=== PATIENT | male | born 1970 | race Caucasian/White ===

== ENCOUNTER 2020-03-08 22:08 | Emergency (ER) | payer OTHER, SELFPAY ==
[2020-02-05 10:08] VITALS: BMI 29.1
[2020-03-08 22:09] VITALS: BP 163/90; PULSE 90; PULSE 97; RESP 17; RESP 18; TEMP 36.9; O2SAT 96; O2SAT 97; BMI 28.4
--- NOTE | 2020-03-08 22:46 | EKG12_ITS ---
Test Reason : CP Blood Pressure : / mmHG Vent. Rate : 080 BPM Atrial Rate : 080 BPM P-R Int : 148 ms QRS Dur : 090 ms QT Int : 344 ms P-R-T Axes : 047 009 012 degrees QTc Int : 396 ms Normal sinus rhythm Inferior infarct , age undetermined , cannot be excluded Abnormal ECG Confirmed by CARLOS ROBLERO, VIKTOR ([id number]), desk editor RAGHAVENDRA ROBISON ([id number]) on 03/10/2020 9:40:39 AM Referred By: RONNY Confirmed By:VIKTOR GONZALEZ MD
--- NOTE | 2020-03-08 22:46 | ED.DCSUM_ITS ---
History of Present Illness Chief Complaint: Hypertension Detail of Chief Complaint: chest pain Informant: Patient Onset: Hours - 1.5 [employer] Activity at onset: Rest - Soon after drinking a small amount of rum in [place] Timing: Continuous Quality: - - discomfort Location: Substernal - radiates into throat; no pain in back, arms, abd. Current Severity: Mild Maximum Severity: Mild Worsened By: - - occasionally has seemed worse w/ lying flat. Not Worsened By: Exertion, Movement of Arm, Movement of Torso, Eating, Palpation, Breathing, Coughing Relieved By: Nothing Associated Symptoms: Negative for: Nausea, Vomiting, Diaphoresis, Dyspnea, Cough, Fever, Lightheadedness, Palpitations Narrative: Patient has had chest discomfort tonight and he checked his blood pressure at home, it was 167 systolic. He takes benazepril for blood pressure, usually at night, accidentally took an extra dose this morning as well, 10 mg each tablet. He states he had the same discomfort 3 or 4 weeks ago, he was seen in the ER at [place], had a negative work-up and was discharged home to follow-up with cardiology. He states he had the discomfort for about 10 days, consistently before it resolved, and then returned tonight without any obvious cause. He has been exerting himself recently without any symptoms. No recent leg pain or swelling. Takes a baby aspirin every AM. States he has been a type I diabetic for the last 25 years. He sees endocrinology and is actively working to try to keep his A1c under control. He had a cardiac stress test on the treadmill in October 2018 that was unremarkable. He states he had a telemedicine consultation with cardiology with [facility], but he would rather follow-up with a access director locally, so he made an appointment with Dr. Parker but is not scheduled to be seen until March. - Past Medical History (1) Type 1 diabetes mellitus Status: Chronic (2) Benign essential hypertension Status: Chronic Past Medical History - Allergies and Home Meds Allergies/Adverse Reactions: Allergies simvastatin [From Zocor] Allergy (Intermediate, Verified 03/08/20 22:08) Unknown Primary Care Physician: Kimberly Del Cid MD [Primary Care Provider] - 3-5 Days if not improving (and/or cardiology as scheduled) Lives: Spouse/ Significant Other Smoking Status: Unknown if ever smoked Alcohol: Occasional Drugs: None Review of Systems General: Denies: Chills, Fever, Sweats Eyes: Denies: Visual changes - bilaterally, Diplopia ENT: Denies: Bilateral ear pain, Rhinorrhea, Sore throat Cardiovascular: Reports: Chest pain. Denies: Palpitations Respiratory: Denies: Dyspnea, Cough, Dyspnea on exertion Gastrointestinal: Denies: Abdominal pain, Nausea, Vomiting, Diarrhea, Melena, Hematochezia Genitourinary: Denies: Dysuria, Hematuria, Frequency Musculoskeletal: Denies: Neck pain, Back pain, Swelling, Extremity Pain Skin: Denies: Rash, Wounds Neurological: Denies: Headache, Weakness, Numbness Physical Exam Vital Signs/Narrative: Vital Signs Temp Pulse Resp BP Pulse Ox 03/08/20 22:09 98.4 F 97 18 163/90 H 97 Inital Vital Signs reviewed: Yes General: Well nourished, Well developed, No Acute Distress - Well-appearing no distress Head: Normocephalic, Atraumatic Eyes: Perrl, EOMI ENT: Moist mucous membranes, No rhinorrhea Neck: Supple, Nontender, No lymphadenopathy, No JVD Cardiovascular: Regular rate, Regular rhythm, No murmurs. Negative for: Tachycardia Respiratory: No distress, CTA bilaterally, Chest tenderness - left Abdomen: Soft, Nontender, Nondistended, Normal bowel sounds Back: Nontender, Normal Inspection Extremities: Nontender, No edema. Negative for: Calf Tenderness Skin: Normal color, No rash, No Trauma Neurological: Alert, Oriented x3, Cranial nerves II-XII grossly intact, Normal Strength, Normal Sensation, Normal Gait Psychological: Normal affect, Normal Mood Diagnostic/Tx/Re-eval Chest X-Ray - ED: 2 View, Read by ED Physician, Read by Radiologist, Normal, Heart, Lungs, Mediastinum, No Acute Disease Impressions Chest X-Ray 03/08/20 22:47 IMPRESSION: Degenerative changes, as described above. No demonstrated acute cardiopulmonary process. Electronically Signed: Lissy Mehta MD at 23:08 EDT Tel , Service support , 03/08/20 22:47 Chest PA and Lateral [RAD] Stat Laboratory Results 03/08/20 03/08/20 22:15 22:15 WBC 7.0 RBC 5.67 Hgb 15.9 Hct 46.2 MCV 81.5 MCH 28.0 MCHC 34.4 RDW Std Deviation 38.4 RDW Coeff of Inocente 13.0 Plt Count 188 MPV 9.5 Immature Gran % (Auto) 0.300 Neut % (Auto) 55.9 Lymph % (Auto) 30.6 [place] % (Auto) 10.0 Eos % (Auto) 2.6 Baso % (Auto) 0.6 Absolute Neuts (auto) 3.9 Absolute Lymphs (auto) 2.14 Nucleated RBC % 0 Sodium 139 Potassium 3.7 Chloride 105 Carbon Dioxide 28.0 Anion Gap 6 BUN 16 Creatinine 1.00 Estim Creat Clear Calc 99.88 Est GFR (MDRD) Af Amer 102 Est GFR (MDRD) Non-Af 84 BUN/Creatinine Ratio 16.0 Glucose 231 H Calcium 8.4 L Troponin I < 0.015 - Rhythm Strip Rhythm Strip: Sinus Rhythm Rate: 80 Ectopy: None - EKG Initial EKG Interpretation: Sinus Rhythm, No Acute Injury Pattern - Normal axis. Normal EKG. Prior: Unchanged - c/w EKG from 2003 Treatment: GI Cocktail Repeat Eval: 11/28 POLLY Risk: ASA within 7 days Score: 1 - Medical Decision Making EKG, chest x-ray, labs are all unremarkable. Initially we tried a GI cocktail but it did not seem to make a big difference, however his discomfort did go away at one point and then returned and was very mild, and on further discussion he states he can stretch out his pectoral muscles with his arms back behind him, and can manipulate the discomfort. With palpation beneath the left pectoral muscle group, the symptoms are reproducible. I am comfortable letting him go home to follow-up as an outpatient, his blood pressure is down to the 130s. We discussed the possibility that his elevated blood pressures are a result of his symptoms and/or adrenaline, etc. and not the cause of his pain. We discussed trying a 2-week course of a PPI, or ibuprofen. He declined doses of those here. He is comfortable being discharged home and following up with cardiology as planned. ED Disposition - Plan for ED Patient: Disposition: Home or Assisted Living Diagnosis: Chest pain, unspecified Instructions: ED Chest Pain Atypical Unkn Cause, ED CHEST PAIN [place] Referrals: Kimberly Del Cid MD [Primary Care Provider] - 3-5 Days if not improving (and/or cardiology as scheduled)
--- NOTE | 2020-03-08 22:47 | RAD_ITS ---
STUDY: X-RAY CHEST REASON FOR EXAM: Male, 50 years old. CHEST PAIN TECHNIQUE: PA and lateral views of the chest. COMPARISON: None. FINDINGS: The lungs are clear and expanded. There is no demonstrated pleural abnormality. Normal size heart. Normal mediastinum and mirella. Normal visualized pulmonary arteries. Normal visualized aortic arch and descending thoracic aorta. There are diffuse degenerative changes of the visualized thoracic spine. Normal visualized ribs, clavicles, and shoulders. There is no demonstrated abnormality of the visualized soft tissue structures of the upper abdomen. RAD/Chest PA and Lateral IMPRESSION: Degenerative changes, as described above. No demonstrated acute cardiopulmonary process. Electronically Signed: Lissy Mehta MD at 23:08 EDT Tel , Service support ,
[2020-03-08 23:04] LABS: Absolute Lymphocyte Count 2.14 X10^3/uL (0.83-4.51); Absolute Neutrophil Count 3.9 X10^3/uL (2.0-7.7); Basophil# 0.04 X10^3/uL; Basophil% 0.6 % (0-1); Eosinophil# 0.18 X10^3/uL; Eosinophils% 2.6 % (0-5); Hematocrit 46.2 % (40-54); Hemoglobin 15.9 g/dL (13.0-16.5); Lymphocyte # 2.14 X10^3/ul (4.0); Lymphocyte % 30.6 % (19-41); Mean Corp Hgb Conc 34.4 g/dL (32-36); Mean Corpuscular Volume 81.5 fL (80-94); Mean Platelet Vol. 9.5 fl (6.2-12.0); NRBC Flagged by Analyzer 0 % (0-5); Neutrophil # 3.92 X10^3/uL (2.7-7.7); Neutrophil % 55.9 % (47-70); Platelet Count 188 K/mm3 (150-450); RBC Distribution Width SD 38.4 fl (35.1-43.9); Red Blood Count 5.67 M/mm3 (4.6-6.2)
[2020-03-08] MEDS: Mag Hydrox/Al Hydrox/Simeth 30 ML UDC PO (23:08)
[2020-03-08 23:26] LABS: Anion Gap 6 (5-15); BUN 16 mg/dL (7-18); Calcium,Total 8.4 mg/dL (8.5-10.1); Chloride 105 mmol/L (98-107); EST Glomerular Filtration Rate 84 mL/min (>60); Est Glom Filt Rate - Afr Amer 102 mL/min (>60); Estimated Creatinine Clearance 99.88 ml/min; Glucose 231 mg/dL (74-106); Potassium 3.7 mmol/L (3.5-5.1); Sodium Level 139 mmol/L (136-145)
[2020-03-08 23:42] VITALS: BP 130/87; PULSE 78; RESP 18; O2SAT 95
[2020-03-09 00:30] VITALS: BP 136/87; PULSE 75; RESP 17; O2SAT 99
== END 2020-03-09 00:40 | disposition home or self-care (01) ==
PROVIDERS: Emergency Provider Emergency Medicine; PCP Internal Medicine
DX: R07.9 Chest pain, unspecified (principal); I10 Essential (primary) hypertension; E10.9 Type 1 diabetes mellitus without complications; Z79.4 Long term (current) use of insulin; Z79.82 Long term (current) use of aspirin; Z79.899 Other long term (current) drug therapy
CPT/HCPCS: 71046; 80048; 84484; 85025; 93005; 99285; A4216

== ENCOUNTER → 2020-03-19 | Outpatient (CLI) | payer OTHER, SELFPAY ==
[2020-03-08 22:09] VITALS: BMI 28.4
[2020-03-19 10:48] LABS: T4 Free Direct 0.87 ng/dL (0.76-1.46)
[2020-03-20 09:52] LABS: Thyroid Peroxidase AB 14 IU/mL (0-34)
== END | disposition home or self-care (01) ==
LOC: MTLAB 08:31
PROVIDERS: PCP Internal Medicine; Referring Provider Internal Medicine Endocrinology, Diabetes & Metabolism; Visit Provider Internal Medicine Endocrinology, Diabetes & Metabolism
DX: E10.9 Type 1 diabetes mellitus without complications (principal); I10 Essential (primary) hypertension; R00.2 Palpitations
CPT/HCPCS: 36415; 84439; 86376

== ENCOUNTER → 2020-03-31 | Outpatient (CLI) | payer OTHER, SELFPAY ==
[2020-03-24 16:47] VITALS: BMI 28.0
--- NOTE | 2020-03-31 13:25 | CT_ITS ---
STUDY: CARDIAC CALCIUM SCORING - CT CHEST REASON FOR EXAM: Male, 50 years old. CP, DIABETIC. over read only RADIATION DOSAGE (If Supplied By Facility): CTDIvol = ( 13.28 ) mGy, DLP = ( 866.45 ) mGycm TECHNIQUE: Axial non-enhanced images were acquired through the heart for the sole purpose of measuring coronary artery calcium. Individualized dose optimization techniques were used for this CT. COMPARISON: None. FINDINGS: Visualized surrounding anatomy: Normal. Left Main Coronary Artery: 0 Left Anterior Descending Artery: 0 Left Circumflex Artery: 0 Right Coronary Artery: 0 Other: 6 x 4 mm left lower lobe subpleural nodule on image 8. Small right middle and lower lobe calcified granulomas. No focal pulmonary consolidation Total Calcium Score: 0 CT/Limited Chest CT w/CCTA IMPRESSION: A Calcium Score of 0 places the patient in the approximate 0 percentile, based on the [employer] data calculator. 5 mm average diameter left lower lobe subpleural nodule. If high risk for developing pulmonary malignancy continued annual chest CT is recommended. If low risk, no follow-up is recommended. Please go to: [email or web address] , for a description of the calculator. Electronically Signed: Srinivas Dukes, at 16:09 EDT Tel , Service support ,
--- NOTE | 2020-03-31 13:25 | CT_ITS ---
STUDY: CTA CHEST REASON FOR EXAM: Male, 50 years old. Chest pain RADIATION DOSAGE (If Supplied By Facility): CTDIvol = ( 13.28 ) mGy, DLP = ( 866.45 ) mGycm TECHNIQUE: The examination was performed with the intravenous administration of 100ML ISOVUE 300. Post-processing of the angiographic images was performed, with multiplanar reformation and 3D reconstruction. Individualized dose optimization techniques were used for this CT. COMPARISON: None. FINDINGS: Normal enhancement of the main pulmonary artery and right and left pulmonary arteries. Normal enhancement of the bilateral peripheral pulmonary arteries. There is no demonstrated pulmonary embolism. Normal pleura. 6 x 4 mm left lower lobe subpleural nodule on image 49. Small right middle and lower lobe calcified granulomas. No focal pulmonary consolidation. Tracheobronchial tree is patent. Normal thoracic aorta and visualized great vessels. There is no demonstrated aortic dissection. No aortic aneurysm. Normal heart and pericardium. No mediastinal, axillary or bulky hilar adenopathy. Normal visualized trachea and bronchi. Normal chest wall structures. Mild degenerative changes of the spine. Normal visualized upper abdomen. CT/CTA Chest W/WO Contrast IMPRESSION: No pulmonary embolism or arterial dissection. No aortic aneurysm. 5 mm average diameter left lower lobe subpleural nodule. If high risk for developing pulmonary malignancy continued annual chest CT is recommended. If low risk, no follow-up is recommended. Electronically Signed: Srinivas Dukes, at 17:05 EDT Tel , Service support ,
[2020-03-31 13:30] VITALS: BP 134/83; PULSE 77; RESP 16; O2SAT 98; BMI 27.7
--- NOTE | 2020-04-01 08:46 | CA.SCORE ---
Calcium Scoring Date of Study:: 04/01/20 Coronary Calcium Scoring: High-resolution Computed Tomographic imaging of the chest was performed on [03/31/2020 ], with particular attention paid to the coronary arteries. Images from the examination were analyzed for the presence and extent of coronary artery calcification , using coronary calcium quantification software. The patient tolerated the procedure well and there were no complications. The results of the coronary calcification analysis are provided below. - Findings Left Main (LM): 0 Left Anterior Descending (LAD): 0 Left Circumflex (LCX): 0 Total Agatston Score: 0 Calcium Scoring Interpretation: 0 No identifiable atherosclerotic plaque. Very low cardiovascular disease risk. <5% chance of presence coronary artery disease A Negative Examination 1-10 Minimal Plaque burden. Significant coronary artery disease very unlikely. 11-100 Mild plaque burden. Likely mild or minimal coronary atherosclerosis. 101-400 Moderate plaque burden Moderate non-obstructive coronary artery disease highly likely. Over 400 Extensive plaque burden. High likelihood of at least one significant coronary stenosis (>50% diameter) Calcium Score: 0 Negative Examination - A full evaluation of cardiac risk should include an assessment of all cardiac risk.
== END | disposition home or self-care (01) ==
PROVIDERS: PCP Internal Medicine; Referring Provider Internal Medicine Cardiovascular Disease; Visit Provider Internal Medicine Cardiovascular Disease
DX: I10 Essential (primary) hypertension (principal); R07.9 Chest pain, unspecified
CPT/HCPCS: 71275; 75571; 76380; Q9967

== ENCOUNTER → 2020-04-23 | Outpatient (CLI) | payer OTHER, SELFPAY ==
[2020-03-31 13:30] VITALS: BMI 27.7
--- NOTE | 2020-04-23 16:34 | STRESSREP ---
Stress Test Report Exercise stress test. 50-year-old man with a history of chest pain. Stress protocol: Resting EKG demonstrates sinus rhythm with a rate of 67 bpm normal intervals are noted resting blood pressures 130/78 mmHg. The patient exercised according to regular Emil protocol for a total duration of 10 minutes. The maximum heart rate attained was 171 bpm which was 100% of maximum predicted heart rate the maximum workload was 11.7 metabolic equivalents. At rest there were no ST or T wave changes noted suggest ischemia at peak exercise upsloping ST changes only were noted with no meet the criteria for ischemia. No clinical angina was noted the test was terminated due to moderate shortness of breath as well as the target heart rate being achieved. The resting blood pressure was 130/78 mmHg with a peak blood pressure 174/76 mmHg. Conclusion: Exercise stress test with no EKG criteria for ischemia at a high workload. Excellent functional capacity. No arrhythmias noted. Good blood pressure response to exercise.
== END | disposition home or self-care (01) ==
LOC: CVS 09:50
PROVIDERS: PCP Internal Medicine; Referring Provider Internal Medicine Cardiovascular Disease; Visit Provider Internal Medicine Cardiovascular Disease
DX: R07.9 Chest pain, unspecified (principal); R42 Dizziness and giddiness; E10.9 Type 1 diabetes mellitus without complications; E78.5 Hyperlipidemia, unspecified; I10 Essential (primary) hypertension
CPT/HCPCS: 93017

== ENCOUNTER → 2020-07-30 | Outpatient (CLI) | payer OTHER, SELFPAY ==
[2020-07-27 13:47] VITALS: BMI 27.7
== END | disposition home or self-care (01) ==
PROVIDERS: PCP Internal Medicine; Referring Provider Internal Medicine; Visit Provider Internal Medicine
DX: F41.9 Anxiety disorder, unspecified (principal); R53.83 Other fatigue
CPT/HCPCS: 36415; 82533

== ENCOUNTER 2020-09-10 08:45 | Day surgery (SDC) | payer OTHER, SELFPAY ==
[2020-08-23 08:56] VITALS: BMI 27.7
[2020-08-30 17:44] VITALS: BMI 27.7
--- NOTE | 2020-09-10 08:00 | HP_ITS ---
Intake Vital Signs 08/23/20 BMI 27.7 08/23/20 Height 6 ft 1 in 08/23/20 Weight: 208 lb 08/23/20 BMI 27.4 08/23/20 BP 128/77 H 08/23/20 Blood Pressure Location Rt brachial 08/23/20 Position Sitting 08/23/20 Respiration 16 Intake Visit Reasons: C-Scope Chief Complaint: c-scope Fisher Scallop Required: No Is patient in pain?: No Allergies simvastatin [From Zocor] Allergy (Intermediate, Verified 08/23/20 08:56) Unknown Medications insulin lispro 100 unit/mL subcutaneous solution See Rx Instructions SC TID 02/05/20 [History Confirmed 07/27/20] insulin glargine 100 unit/mL (3 mL) subcutaneous pen 25 unit SUBCUT DAILY ml 03/22/20 [History Confirmed 07/27/20] benazepril 10 mg tablet 10 mg PO DAILY #30 tab 07/05/20 [Rx Confirmed 07/27/20] meclizine 25 mg tablet 25 mg PO DAILY PRN #14 tab 07/12/20 [Rx Confirmed 07/12/20] omega-3 fatty acids 1,000 mg capsule 1,000 mg PO DAILY 08/23/20 [History Confirmed 08/23/20] PFSH Medical History Benign essential hypertension (Chronic) Hyperlipidemia (Chronic) Type 1 diabetes mellitus (Chronic) Leg fracture, right (Resolved) Surgical History History of foot surgery (Resolved) History of vasectomy (Resolved) Family History Father Prostate cancer Grandfather Brain aneurysm Cancer Uncle Diabetes Grandmother Thoracic aortic aneurysm (TAA) Social History (Updated 08/23/20 @ 09:[address] Kerwin Ruff MD) Smoking Status: Unknown if ever smoked alcohol intake: current alcohol intake frequency: a few times a month substance use type: does not use what type of physical activity do you participate in: other details: active lifestyle HPI HPI HPI: JENNY SAENZ, is a 50 M who presents to the office today for HPI HPI Surgical H&P: Yes HPI: JENNY SAENZ, is a 50 M who presents to the office today for Screening colonoscopy. The patient has never had a colonoscopy. He denies any blood in stool or abdominal pain. He is has no family history of colon cancer. ROS General General: No weight change or fatigue Endo Endocrine: Yes diabetes mellitus Cardio Cardiovascular: Yes high blood pressure; no murmur, pacemaker, heart disease, atrial fibrillation, heart attack, heart stent, palpitations, shortness of breat with exertion or chest pain Psych Psychiatric: Yes anxiety; no depression Resp Respiratory: No shortness of breath, No sleep apnea, No cough, No COPD, No asthma, No emphysema, No wheezing Gastro Gastrointestinal: No abdominal pain, No nausea or vomiting, No diarrhea, No constipation, No blood in stool, Yes acid reflux, No hemorrhoids, No ulcers, No gallbladder problem, No black,tarry stools Jcarlos Hematologic: No blood thinners Exam Const General: cooperative Orientation: alert, oriented x3 Resp Effort & Inspection: normal respiratory effort Auscultation: clear to auscultation bilaterally Cardio Rate: regular rate Rhythm: regular rhythm Heart Sounds: no murmurs GI Inspection: non-distended Palpation: soft, nontender Assessment & Plan Problems 1. Screen for colon cancer Z12.11 Plan Plan for screening colonoscopy. The patient denies any abdominal pain or blood in his stool or family history of colon cancer. I explained endoscopy in detail to the patient. I explained the risks including but not limited to stroke or heart attack with anesthesia, perforation of the GI tract, bleeding, infection. I explained that any of these could necessitate further emergency surgery. The patient understands and all questions were answered sufficiently. The patient wishes to proceed with procedure. We discussed the current risks associated with COVID-19. While it is understood that there is a community spread of COVID-19, the risk of lionel COVID-19 while at [facility] ([facility]) is very low; however, the risk cannot be completely mitigated because of the community spread of the disease. We discussed in detail the risk of exposure to and/or potential harm posed by the COVID-19 virus with having a surgery/procedure at this time versus the risk of delaying the surgery/procedure. It is not possible to know either the risk of delaying the surgery or procedure or chance of getting an infection with perfect accuracy, but a joint decision was made to proceed at this time with the scheduled surgery/procedure as indicated on the consent form. Patient was notified that we will need to comply with any screening or testing [facility] wishes to perform or that surgery may be delayed for any positive results. Kerwin Ruff MD Pager: [facility] [address] [place] [address], [address] [place] [phone] Office: Orders Orders: Colonoscopy Today Z12.11 Coding Level of Care Code Off vis,new,level 2 Diagnoses Screen for colon cancer Z12.11 I have re-examined the patient. There are no clinical changes since date of exam.
[2020-09-10 09:55] VITALS: BP 122/89; PULSE 59; RESP 16; TEMP 36.6; O2SAT 100; BMI 27.4
[2020-09-10] MEDS: Lactated Ringers 1,000 ML 100 ML IV (10:03)
[2020-09-10 10:16] LABS: Bedside Glucose 245 mg/dL (70-110)
[2020-09-10 10:48] VITALS: BP 122/89; BP 154/87; PULSE 61; RESP 22; TEMP 36.2; O2SAT 100
--- NOTE | 2020-09-10 10:48 | OP.CCLET_ITS ---
09/10/2020 Mckenna Chu [facility] [address] [place] [address] Re : Colonoscopy procedure for Say Brewer Dear Dr. Chu This procedure was performed on Thursday, September 10, 2020. My impressions and recommendations are as follows: Impressions : - The entire examined colon is normal on direct and retroflexion views. - No specimens collected. Recommendations : - Discharge patient to home. - Resume previous diet. - Continue present medications. - Repeat colonoscopy in 10 years for screening purposes. My findings are described in the full procedure note, which is enclosed. If I can be of further assistance, please feel free to contact me at Doctor phone number(s): , Work: . Sincerely, Kerwin Ruff MD 09/10/2020 10:47:30 AM This report has been signed electronically.
--- NOTE | 2020-09-10 10:48 | OP.COLON_ITS ---
Patient Name: Say Brewer Procedure Date: 09/10/2020 10:09 AM Date of : 1970 Age: 50 Procedure: Colonoscopy Indications: Screening for colorectal malignant neoplasm Providers: Kerwin Ruff MD Referring MD: Mckenna Chu Medicines: Monitored Anesthesia Care Patient Profile: This is a 50 year old male. Refer to note in patient chart for documentation of history and physical. Last Colonoscopy: none. The patient's first colonoscopy is today. Complications: No immediate complications. Procedure: Pre-Anesthesia Assessment: - Prior to the procedure, a History and Physical was performed, and patient medications and allergies were reviewed. The patient's tolerance of previous anesthesia was also reviewed. The risks and benefits of the procedure and the sedation options and risks were discussed with the patient. All questions were answered, and informed consent was obtained. Prior Anticoagulants: The patient has taken no previous anticoagulant or antiplatelet agents. After reviewing the risks and benefits, the patient was deemed in satisfactory condition to undergo the procedure. After I obtained informed consent, the scope was passed under direct vision. Throughout the procedure, the patient's blood pressure, pulse, and oxygen saturations were monitored continuously. The pediatric colonoscope was introduced through the anus and advanced to the cecum, identified by appendiceal orifice and ileocecal valve. The colonoscopy was performed without difficulty. The patient tolerated the procedure well. The quality of the bowel preparation was good. Scope In: 10:20:52 AM Scope Withdrawal Time 0 hours 6 minutes 2 seconds Scope Out: 10:45:38 AM Total Procedure Duration Time 0 hours 24 minutes 46 seconds Findings: The entire examined colon appeared normal on direct and retroflexion views. Impression: - The entire examined colon is normal on direct and retroflexion views. - No specimens collected. Recommendation: - Discharge patient to home. - Resume previous diet. - Continue present medications. - Repeat colonoscopy in 10 years for screening purposes. Procedure Code(s): --- Professional --- 09934, Colonoscopy, flexible; diagnostic, including collection of specimen(s) by brushing or washing, when performed (separate procedure) Diagnosis Code(s): --- Professional --- Z12.11, Encounter for screening for malignant neoplasm of colon CPT copyright 2017 [employer]. All rights reserved. The codes documented in this report are preliminary and upon claims consultant review may be revised to meet current compliance requirements. Kerwin Ruff MD 09/10/2020 10:47:30 AM This report has been signed electronically. Number of Addenda: 0 Note Initiated On: 09/10/2020 10:09 AM
[2020-09-10 11:00] VITALS: BP 122/89; BP 134/88; PULSE 58; RESP 18; O2SAT 95
[2020-09-10 11:05] VITALS: BP 122/89; BP 146/80; PULSE 53; RESP 16; TEMP 36.8; O2SAT 97
[2020-09-10 11:06] VITALS: BP 122/89; BP 156/77; PULSE 60; RESP 16; TEMP 36.8; O2SAT 100
--- NOTE | 2020-09-10 11:52 | CT_ITS ---
STUDY: CT ABDOMEN AND PELVIS WITHOUT CONTRAST REASON FOR EXAM: Male, 50 years old. PAIN AFTER COLONOSCOPY RADIATION DOSAGE (If Supplied By Facility): CTDIvol = ( 12.57 ) mGy, DLP = ( 706.78 ) mGycm TECHNIQUE: Transaxial images were obtained from the dome of the diaphragm to the symphysis pubis without oral contrast, and without intravenous contrast. Sagittal and coronal images were reconstructed. Individualized dose optimization techniques were used for this CT. COMPARISON: None. FINDINGS: Minimal degree of increased markings at the lung bases suggestive of bibasilar atelectasis. The visualized portions of the heart are within normal limits. Normal liver. Normal gallbladder and extrahepatic biliary system. Normal spleen. Normal pancreas. Normal bilateral adrenal glands. Normal right kidney. Normal left kidney. There is a small hiatal hernia. Normal small intestine. Gaseous distention of the colon in keeping with the recent colonoscopy. The appendix is visualized and appears normal. Normal abdominal aorta. Normal inferior vena cava. There is borderline retroperitoneal lymphadenopathy with enlarged nodes no greater than 10mm in the short axis diameter. Normal urinary bladder. There is a small umbilical hernia containing fat. Normal osseous structures. CT/Abdomen/Pelvis without Cont IMPRESSION: Gaseous distention of the colon in keeping with the recent colonoscopy. Small umbilical hernia containing fat. Mild degree of bibasilar linear atelectasis. Electronically Signed: Malcolm Hernandez, at 12:25 EDT , Service support ,
[2020-09-10 13:44] VITALS: BP 122/89; BP 153/79; PULSE 83; RESP 18; TEMP 36.8; O2SAT 98
== END 2020-09-10 13:46 | disposition home or self-care (01) ==
LOC: EN 08:45 → AC 08:45
PROVIDERS: Anesthesiology; PCP Internal Medicine; Referring Provider Internal Medicine; Visit Provider Surgery
PROC: 0DJD8ZZ Inspection of Lower Intestinal Tract, Via Natural or Artificial Opening Endoscopic (ICD-10-PCS; CPT 45378; principal; 2020-09-10 10:25)
DX: Z12.11 Encounter for screening for malignant neoplasm of colon (principal); G89.18 Other acute postprocedural pain; E10.9 Type 1 diabetes mellitus without complications; Z20.828 Contact with and (suspected) exposure to other viral communicable diseases; Z79.4 Long term (current) use of insulin
CPT/HCPCS: 45378; 74176; 82962; 87635; C9803; J7030; J7120; J2405; U0003

== ENCOUNTER → 2020-11-02 10:48 | Outpatient (CLI) | payer OTHER, SELFPAY ==
[2020-09-27 08:30] VITALS: BMI 27.9
== END ==
PROVIDERS: PCP Internal Medicine; Referring Provider Internal Medicine; Visit Provider Internal Medicine
DX: G47.30 Sleep apnea, unspecified (principal)
CPT/HCPCS: 95806

== ENCOUNTER → 2020-11-18 14:59 | Outpatient (CLI) | payer OTHER, SELFPAY ==
[2020-09-27 08:30] VITALS: BMI 27.9
== END ==
PROVIDERS: PCP Internal Medicine; Visit Provider Internal Medicine
DX: Z45.89 Encounter for adjustment and management of other implanted devices (principal)

== ENCOUNTER → 2021-03-14 09:42 | Outpatient (CLI) | payer OTHER, SELFPAY ==
[2021-03-14 08:55] VITALS: BMI 29.0
[2021-03-14 12:50] LABS: AST(SGOT) 16 U/L (15-37); Alanine Aminotransfer ALT/SGPT 34 U/L (16-61); Albumin, Serum 3.6 g/dL (3.2-5.0); Alkaline Phosphatase 79 U/L (45-117); Anion Gap 4 (5-15); BUN 19 mg/dL (7-18); BUN/Creat Ratio 20.3 RATIO (10-20); Calcium,Total 8.6 mg/dL (8.5-10.1); Chloride 103 mmol/L (98-107); Cholesterol 186 mg/dL (200); Creatinine, Serum 0.94 mg/dL (0.70-1.30); EST Glomerular Filtration Rate 90 mL/min (>60); Est Glom Filt Rate - Afr Amer 109 mL/min (>60); Globulin 3.5 g/dL (2.2-4.2); Glucose 169 mg/dL (74-106); High Density Lipoprotein 35 mg/dL; Potassium 4.1 mmol/L (3.5-5.1); Protein, Total 7.1 g/dL (6.4-8.2); Sodium Level 137 mmol/L (136-145); Thyroid Stim Hormone (TSH) 3.61 uIU/mL (0.358-3.74); Triglycerides 144 mg/dL; Very Low Density Lipoprotein 29 mg/dL (5-40)
[2021-03-14 13:20] LABS: Microalbumin,Random Urine 8.3 mg/L (NO RANGE EST.); Microalbumin:Creatinine Ratio 5.4 mg/g CRE (<30 mg/g CRE)
== END ==
PROVIDERS: PCP Internal Medicine; Visit Provider Internal Medicine Endocrinology, Diabetes & Metabolism
DX: E10.9 Type 1 diabetes mellitus without complications (principal); E78.5 Hyperlipidemia, unspecified; I10 Essential (primary) hypertension
CPT/HCPCS: 36415; 80053; 80061; 82043; 82570; 84443

== ENCOUNTER → 2021-07-21 17:39 | Outpatient (CLI) | payer OTHER, SELFPAY ==
--- NOTE | 2021-07-21 17:42 | CT_ITS ---
INDICATION: Left lower lung nodule EXAMINATION: CT CHEST WITHOUT CONTRAST - CT Chest W/O Contrast Injection TECHNIQUE: Helically acquired images were obtained of the chest. A radiation dose optimization technique was used for this scan. IV Contrast dosage and agent: None. COMPARISON: 09/10/2020 and 03/31/2020. FINDINGS: LUNGS, PLEURA AND LARGE AIRWAYS: Mild thickening of the bronchial hernandez is seen, no evidence of focal consolidation or infiltrate. No evidence of pneumothorax or pleural effusion. 0.6 cm pleural-based density is visualized in the upper segment of the superior segment of the left lower lobe seen on axial series 2 image 50 0.4 cm calcified granuloma visualized in the anterolateral right middle lobe. THYROID: No thyroid lesions. HEART AND PERICARDIUM: Heart size is normal. No pericardial effusion. VESSELS: Thoracic aorta is not dilated. MEDIASTINUM AND JUAN: There is a superior mediastinal soft tissue density visualized in the lateral aspect of the prior pretracheal region best visualized on axial series 2 image 34 and coronal series 602 image 128 this demonstrates smooth surface with attenuation similar to fluid and measures 3.6 x 2.8 x 2.3 cm. Subtle scattered hilar and mediastinal lymph nodes are visualized, differential diagnosis prominent lymph node/lymphoma, germ cell tumor or a cyst, on correlation of the prior studies this demonstrates no significant change dating back to 03/31/2020. Esophagus is unremarkable. No hiatal hernia. UPPER ABDOMEN: No acute pathology. BONES: Degenerative bone changes, no suspicious lytic or blastic abnormality. CT/Chest without Contrast IMPRESSION: 0.6 cm pleural-based density in the superior segment of the left lower lobe demonstrates no significant change in comparison to the prior study. Calcified granulomas demonstrate no significant change in comparison to the prior study. 3.6 cm superior mediastinal soft tissue density demonstrates no significant change in comparison to the prior study. No evidence of acute cardiopulmonary disease is seen. Lung RADS category 2, less than 1% malignancy probability. Electronically Signed: Dhaval Godinez MD at 9:39 EDT Tel , Service support ,
== END ==
PROVIDERS: PCP Internal Medicine; Visit Provider Internal Medicine
DX: R91.1 Solitary pulmonary nodule (principal)
CPT/HCPCS: 71250

== ENCOUNTER → 2021-08-08 | Outpatient (CLI) | payer OTHER, SELFPAY | END | disposition home or self-care (01) | LOC: LABSPEC 13:52 | PROVIDERS: PCP Internal Medicine; Referring Provider Internal Medicine; Visit Provider Internal Medicine | DX: M79.10 Myalgia, unspecified site (principal); R50.9 Fever, unspecified | CPT/HCPCS: 87635; U0005; U0003 ==

== ENCOUNTER 2021-08-11 17:25 | Outpatient (CLI) | payer OTHER, SELFPAY ==
[2021-08-11 17:51] VITALS: BP 144/78; PULSE 93; RESP 16; TEMP 37.7; O2SAT 97; BMI 29.1
[2021-08-11] MEDS: 0.9% Saline Lock 10 ML Syringe IV (18:04)
[2021-08-11 18:30] VITALS: BP 137/77; PULSE 91; RESP 16; TEMP 38.8; O2SAT 97
[2021-08-11] MEDS: Acetaminophen 325 MG Tablet 650 MG PO (18:55)
[2021-08-11 19:32] VITALS: BP 133/72; PULSE 87; RESP 16; TEMP 38.8; O2SAT 98
== END 2021-08-11 19:40 | disposition home or self-care (01) ==
LOC: ICUOUT 17:25 → MS3 17:26
PROVIDERS: PCP Internal Medicine; Referring Provider Nurse Practitioner Adult Health; Visit Provider Nurse Practitioner Adult Health
DX: Z23 Encounter for immunization (principal); U07.1 COVID-19
CPT/HCPCS: J7050; M0243; A4216; Q0244

== ENCOUNTER 2021-08-12 11:46 | Emergency (ER) | payer OTHER, SELFPAY ==
[2021-08-12 11:48] VITALS: BP 115/77; PULSE 74; RESP 14; TEMP 37.1; O2SAT 96; BMI 28.3
--- NOTE | 2021-08-12 12:45 | EX.ED.DYSGE1 ---
HPI History of Present Illness Chief Complaint: Fatigue Informant: patient Onset/Context/Timing Onset: Today Context: Gradual Onset Timing: Continuous Quality: Fatigue Location: Generalized Worsened by: Nothing Relieved by: Nothing Associated Symptoms Associated Symptoms: Diarrhea Narrative Narrative: Patient presents with fatigue and sweats that began this morning. Patient states he was recently diagnosed with COVID-19. Patient states he had a monoclonal antibody infusion yesterday. Patient states he woke up with worsening fatigue and sweats. Patient also admits to some diarrhea for the past couple days. Patient states that he called his primary care physician to see if this was typical after the monoclonal antibody infusion. Patient states his primary care physician then referred him to the emergency department for further evaluation. [facility] Medical History Benign essential hypertension Hyperlipidemia Leg fracture, right Overweight (BMI 25.0-29.9) Type 1 diabetes mellitus Vertigo Home Medications cholecalciferol (vitamin D3) 25 mcg (1,000 unit) capsule 25 mcg PO DAILY 09/27/20 [History Last Taken Unknown] benazepril 10 mg tablet 5 mg PO DAILY #90 tab 10/26/20 [Rx Last Taken Unknown] flash glucose sensor #2 ea 03/14/21 [Rx Last Taken Unknown] pen needle, diabetic 31 gauge x /16 #1200 each 03/14/21 [History Last Taken Unknown] insulin glargine 100 unit/mL (3 mL) subcutaneous pen 24 unit SC DAILY ml 06/27/21 [History Last Taken Unknown] Humalog KwikPen Insulin 100 unit/mL subcutaneous 15 unit SC TID #15 ml NS 07/18/21 [Rx Last Taken Unknown] ascorbic acid (vitamin C) [Vitamin C] 500 mg PO BID 08/11/21 [History Last Taken Unknown] Allergy/AdvReac Type Severity Reaction Status Date / Time simvastatin [From Zocor] Allergy Intermediate Diarrhea Verified 08/12/21 11:48 Family History Father Prostate cancer Grandfather Brain aneurysm Cancer Uncle Diabetes Grandmother Thoracic aortic aneurysm (TAA) Surgical History History of colonoscopy History of foot surgery History of vasectomy Social History Smoking Status: Former smoker alcohol intake: current alcohol intake frequency: a few times a month substance use type: does not use what type of physical activity do you participate in: other details: active lifestyle ROS ROS ED Constitutional Constitutional ED: Reports sweats; Denies chills or fever(s) Eyes Eyes: Denies blurry vision or change in vision ENT ENT ED: Denies rhinorrhea or sore throat Cardiovascular Cardiovascular: Denies chest pain or palpitations Respiratory/Chest Respiratory/Chest: Denies cough or dyspnea Gastrointestinal Gastrointestinal: Reports diarrhea; Denies nausea or vomiting Genitourinary Genitourinary ED: Denies dysuria or hematuria Musculoskeletal Musculoskeletal: Reports back pain; Denies neck pain Integumentary Denies abscess or rash Neurologic Neurologic: Reports weakness; Denies headache(s) Allergic/Immunologic Allergic/Immunologic ED: Denies mouth swelling or urticaria EXAM Physical Exam Const Vital Signs: 08/12/21 11:48 08/12/21 13:03 Temperature 98.7 F Temperature Source Oral Pulse Rate 74 81 Respiratory Rate 14 16 Respiratory Effort Normal Non-Labored Blood Pressure 115/77 Blood Pressure Mean 89 Pulse Ox 96 97 Oxygen Delivery Method Room Air Room Air Positive well nourished and well developed General Appearance ED: well developed HEENT Reports moist mucous membranes Neck supple and no JVD Resp normal respiratory effort and clear to auscultation bilaterally Cardio regular rate, regular rhythm and no murmurs GI normal to inspection, nondistended, normoactive bowel sounds and non-tender Palpation: soft Extremity normal to inspection General Extremety ED: Negative for edema or tenderness General Extremity: Negative for edema Neuro oriented x3, CN's II-XII intact bilaterally and no sensory deficits noted Sensorium / Orientation: alert Motor Exam: strength 5/5 throughout Psych mental status grossly normal Skin no rashes or lesions noted MDM MDM MDM Narrative Medical decision making narrative: CBC and comprehensive metabolic profile were obtained and were essentially within normal limits. Patient was given a 500 cc bolus of normal saline. Patient was feeling better on reevaluation. Patient was advised of his findings. Patient was instructed to continue small amounts of fluids frequently. Patient was instructed to continue Tylenol as needed for any aches or fevers. Patient was instructed to follow-up with his primary care physician in 5 to 7 days. Patient and family understood and were agreeable with the plan. All questions were answered. Lab Data Attestation: I reviewed the patient's lab results. Labs: Laboratory Results - last 24 hr 08/12/21 08/12/21 12:50 12:50 WBC 3.4 L RBC 5.47 Hgb 15.1 Hct 44.3 MCV 81.0 MCH 27.6 MCHC 34.1 RDW Std Deviation 37.3 RDW Coeff of Inocente 12.7 Plt Count 70 L MPV 10.7 Immature Gran % (Auto) 0.300 Neut % (Auto) 65.8 Lymph % (Auto) 24.4 [place] % (Auto) 9.2 Eos % (Auto) 0.0 Baso % (Auto) 0.3 Absolute Neuts (auto) 2.2 Absolute Lymphs (auto) 0.82 L Nucleated RBC % 0 Differential Comment SCANNED Platelet Estimate MOD DEC Sodium 132 L Potassium 3.6 Chloride 101 Carbon Dioxide 26.0 Anion Gap 5 BUN 15 Creatinine 1.04 Estim Creat Clear Calc 94.97 Est GFR (MDRD) Af Amer 97 Est GFR (MDRD) Non-Af 80 BUN/Creatinine Ratio 14.4 Glucose 260 H Calcium 7.9 L Total Bilirubin 0.50 AST 29 ALT 35 Alkaline Phosphatase 70 Total Protein 7.0 Albumin 3.0 L Globulin 4.0 Albumin/Globulin Ratio 0.8 L Discharge Plan Triage Chief Complaint: Fatigue ED Provider: Bob Eisenberg Dx/Rx/DC Orders Clinical Impression: COVID-19 Instructions: Coronavirus Disease 2019 (COVID-19): Overview Prescriptions: No Action cholecalciferol (vitamin D3) 25 mcg (1,000 unit) capsule 25 mcg PO DAILY RF: 0 (DME) pen needle, diabetic 31 gauge x 5/16 needle See Rx Instructions each .ROUTE .MEDSUPPLY Qty: 1200 RF: 0 (DME) FreeStyle Shonna 2 Sensor Kit See Rx Instructions .ROUTE .MEDSUPPLY Qty: 2 RF: 12 insulin glargine 100 unit/mL (3 mL) insulin pen 24 unit SC DAILY RF: 0 ascorbic acid (vitamin C) [Vitamin C] 500 mg Tablet 500 mg PO BID RF: 0 benazepril 10 mg tablet 5 mg PO DAILY Qty: 90 RF: 1 insulin lispro [Humalog KwikPen Insulin] 100 unit/mL insulin pen 15 unit SC TID Qty: 15 RF: 5 Primary Care Provider: Mckenna Chu Referrals: Mckenna Chu MD [Primary Care Provider] - 5-7 Days Disposition Disposition: Home, Self Care
[2021-08-12 13:03] VITALS: PULSE 81; RESP 16; O2SAT 97
[2021-08-12 13:04] LABS: Absolute Lymphocyte Count 0.82 X10^3/uL (0.83-4.51); Absolute Neutrophil Count 2.2 X10^3/uL (2.0-7.7); Basophil# 0.01 X10^3/uL; Basophil% 0.3 % (0-1); Hematocrit 44.3 % (40-54); Hemoglobin 15.1 g/dL (13.0-16.5); Lymphocyte # 0.82 X10^3/ul (0.83-4.51); Lymphocyte % 24.4 % (19-41); Mean Corp Hgb Conc 34.1 g/dL (32-36); Mean Corpuscular Hgb 27.6 pg (27.0-32.0); Mean Platelet Vol. 10.7 fl (6.2-12.0); Monocyte# 0.31 X10^3/uL; Monocyte% 9.2 % (0-10); NRBC Flagged by Analyzer 0 % (0-5); Neutrophil # 2.21 X10^3/uL (2.7-7.7); Neutrophil % 65.8 % (47-70); POSITIVE COUNT YES; Platelet Count 70 K/mm3 (150-450); RBC Distribution Width CV 12.7 % (11.6-14.6); RBC Distribution Width SD 37.3 fl (35.1-43.9); Red Blood Count 5.47 M/mm3 (4.6-6.2); White Blood Count 3.4 K/mm3 (4.4-11.0)
[2021-08-12 13:06] LABS: Differential Indicated SCAN CRITERIA MET
[2021-08-12 13:24] LABS: ALB/GLOB Ratio 0.8 RATIO (0.9-2.4); AST(SGOT) 29 U/L (15-37); Alanine Aminotransfer ALT/SGPT 35 U/L (16-61); Alkaline Phosphatase 70 U/L (45-117); Anion Gap 5 (5-15); BUN 15 mg/dL (7-18); BUN/Creat Ratio 14.4 RATIO (10-20); Calcium,Total 7.9 mg/dL (8.5-10.1); Chloride 101 mmol/L (98-107); Creatinine, Serum 1.04 mg/dL (0.70-1.30); EST Glomerular Filtration Rate 80 mL/min (>60); Est Glom Filt Rate - Afr Amer 97 mL/min (>60); Estimated Creatinine Clearance 94.97 ml/min; Glucose 260 mg/dL (74-106); Potassium 3.6 mmol/L (3.5-5.1); Sodium Level 132 mmol/L (136-145)
[2021-08-12 13:44] LABS: Differential Comment SCANNED; Platelet Estimate MOD DEC (ADEQ)
[2021-08-12 16:06] VITALS: BP 110/78; PULSE 68; RESP 12; O2SAT 97
== END 2021-08-12 16:06 | disposition home or self-care (01) ==
PROVIDERS: Emergency Provider Emergency Medicine; PCP Internal Medicine
DX: U07.1 COVID-19 (principal); I10 Essential (primary) hypertension; E78.5 Hyperlipidemia, unspecified; E10.9 Type 1 diabetes mellitus without complications; Z79.4 Long term (current) use of insulin; Z79.899 Other long term (current) drug therapy; Z87.891 Personal history of nicotine dependence
CPT/HCPCS: 36415; 80053; 85025; 96360; 96361; 99283; J7040

== ENCOUNTER 2022-01-06 08:22 | Outpatient (CLI) | payer OTHER, SELFPAY ==
[2022-01-06 12:12] LABS: Absolute Lymphocyte Count 1.34 X10^3/uL (0.83-4.51); Absolute Neutrophil Count 3.2 X10^3/uL (2.0-7.7); Basophil# 0.04 X10^3/uL; Basophil% 0.8 % (0-1); Eosinophil# 0.17 X10^3/uL; Eosinophils% 3.2 % (0-5); Hematocrit 46.1 % (40-54); Hemoglobin 15.8 g/dL (13.0-16.5); Lymphocyte # 1.34 X10^3/ul (0.83-4.51); Lymphocyte % 25.3 % (19-41); Mean Corp Hgb Conc 34.3 g/dL (32-36); Mean Corpuscular Hgb 28.2 pg (27.0-32.0); Mean Corpuscular Volume 82.3 fL (80-94); Mean Platelet Vol. 10.1 fl (6.2-12.0); Monocyte# 0.57 X10^3/uL; Monocyte% 10.8 % (0-10); NRBC Flagged by Analyzer 0 % (0-5); Neutrophil # 3.15 X10^3/uL (2.7-7.7); Neutrophil % 59.5 % (47-70); Platelet Count 176 K/mm3 (150-450); RBC Distribution Width CV 13.1 % (11.6-14.6); RBC Distribution Width SD 39.2 fl (35.1-43.9); White Blood Count 5.3 K/mm3 (4.4-11.0)
[2022-01-06 12:26] LABS: Vitamin D,25 Hydroxy 40.8 ng/mL
[2022-01-06 12:35] LABS: AST(SGOT) 13 U/L (15-37); Alanine Aminotransfer ALT/SGPT 24 U/L (16-61); Albumin, Serum 3.4 g/dL (3.2-5.0); Alkaline Phosphatase 70 U/L (45-117); Anion Gap 3 (5-15); BUN 17 mg/dL (7-18); BUN/Creat Ratio 17.9 RATIO (10-20); Calcium,Total 8.4 mg/dL (8.5-10.1); Chloride 105 mmol/L (98-107); Cholesterol 160 mg/dL (200); Creatinine, Serum 0.95 mg/dL (0.70-1.30); EST Glomerular Filtration Rate 89 mL/min (>60); Est Glom Filt Rate - Afr Amer 107 mL/min (>60); Globulin 3.4 g/dL (2.2-4.2); Glucose 214 mg/dL (74-106); High Density Lipoprotein 32 mg/dL; PSA,Total - Annual Screen 3.51 ng/mL (0.00-4.00); Potassium 4.3 mmol/L (3.5-5.1); Protein, Total 6.8 g/dL (6.4-8.2); Sodium Level 137 mmol/L (136-145); Thyroid Stim Hormone (TSH) 3.64 uIU/mL (0.358-3.74); Triglycerides 117 mg/dL; Very Low Density Lipoprotein 23 mg/dL (5-40)
== END 2022-01-06 23:59 | disposition home or self-care (01) ==
PROVIDERS: PCP Internal Medicine; Referring Provider Internal Medicine; Visit Provider Internal Medicine
DX: E78.2 Mixed hyperlipidemia (principal); E10.65 Type 1 diabetes mellitus with hyperglycemia; I10 Essential (primary) hypertension; E55.9 Vitamin D deficiency, unspecified
CPT/HCPCS: 36415; 80053; 80061; 82306; 84153; 84443; 85025; G0103

== ENCOUNTER → 2022-12-26 | Outpatient (CLI) | payer OTHER, SELFPAY ==
[2022-12-26 11:04] LABS: ALB/GLOB Ratio 1.1 RATIO (0.9-2.4); AST(SGOT) 20 U/L (15-37); Alanine Aminotransfer ALT/SGPT 31 U/L (16-61); Albumin, Serum 3.6 g/dL (3.2-5.0); Alkaline Phosphatase 73 U/L (45-117); Anion Gap 7 (5-15); BUN 22 mg/dL (7-18); BUN/Creat Ratio 20.2 RATIO (10-20); Calcium,Total 8.5 mg/dL (8.5-10.1); Chloride 108 mmol/L (98-107); Cholesterol 184 mg/dL (200); Creatinine, Serum 1.09 mg/dL (0.70-1.30); EST Glomerular Filtration Rate 75 mL/min (>60); Est Glom Filt Rate - Afr Amer 91 mL/min (>60); Globulin 3.4 g/dL (2.2-4.2); Glucose 188 mg/dL (74-106); High Density Lipoprotein 37 mg/dL; Potassium 4.2 mmol/L (3.5-5.1); Sodium Level 142 mmol/L (136-145); Thyroid Stim Hormone (TSH) 4.54 uIU/mL (0.358-3.74); Triglycerides 104 mg/dL; Very Low Density Lipoprotein 21 mg/dL (5-40)
[2022-12-26 13:29] LABS: Microalbumin,Random Urine 20.7 mg/L (NO RANGE EST.); Microalbumin:Creatinine Ratio 10.7 mg/g CRE (<30 mg/g CRE)
== END | disposition home or self-care (01) ==
PROVIDERS: PCP Internal Medicine; Referring Provider Nurse Practitioner Family; Visit Provider Nurse Practitioner Family
DX: E10.9 Type 1 diabetes mellitus without complications (principal)
CPT/HCPCS: 36415; 80053; 80061; 82043; 82570; 84443

== ENCOUNTER → 2023-07-20 | Outpatient (CLI) | payer OTHER, SELFPAY ==
[2023-07-20 12:21] LABS: Absolute Neutrophil Count 3.5 X10^3/uL (2.0-7.7); Basophil# 0.05 X10^3/uL; Basophil% 0.9 % (0-1); Eosinophil# 0.19 X10^3/uL; Eosinophils% 3.3 % (0-5); Hematocrit 48.2 % (40-54); Hemoglobin 15.9 g/dL (13.0-16.5); Mean Corpuscular Hgb 28.1 pg (27.0-32.0); Mean Corpuscular Volume 85.2 fL (80-94); Mean Platelet Vol. 10.3 fl (6.2-12.0); Monocyte# 0.55 X10^3/uL; Monocyte% 9.5 % (0-10); NRBC Flagged by Analyzer 0 % (0-5); Neutrophil # 3.46 X10^3/uL (2.7-7.7); Platelet Count 193 K/mm3 (150-450); RBC Distribution Width CV 13.2 % (11.6-14.6); RBC Distribution Width SD 41.1 fl (35.1-43.9); Red Blood Count 5.66 M/mm3 (4.6-6.2); White Blood Count 5.8 K/mm3 (4.4-11.0)
[2023-07-20 13:06] LABS: ALB/GLOB Ratio 1.1 RATIO (0.9-2.4); AST(SGOT) 18 U/L (15-37); Alanine Aminotransfer ALT/SGPT 31 U/L (16-61); Albumin, Serum 3.5 g/dL (3.2-5.0); Alkaline Phosphatase 75 U/L (45-117); Anion Gap 6 (5-15); BUN 23 mg/dL (7-18); BUN/Creat Ratio 22.5 RATIO (10-20); Chloride 109 mmol/L (98-107); Cholesterol 165 mg/dL (200); Creatinine, Serum 1.02 mg/dL (0.70-1.30); EST Glomerular Filtration Rate 81 mL/min (>60); Est Glom Filt Rate - Afr Amer 98 mL/min (>60); Free T3 2.7 pg/mL (2.18-3.98); Globulin 3.2 g/dL (2.2-4.2); Glucose 191 mg/dL (74-106); High Density Lipoprotein 31 mg/dL; PSA,Total - Annual Screen 5.48 ng/mL (0.00-4.00); Potassium 4.1 mmol/L (3.5-5.1); Protein, Total 6.7 g/dL (6.4-8.2); Sodium Level 140 mmol/L (136-145); T4 Free Direct 0.84 ng/dL (0.76-1.46); Thyroid Stim Hormone (TSH) 4.26 uIU/mL (0.358-3.74); Triglycerides 141 mg/dL; Very Low Density Lipoprotein 28 mg/dL (5-40)
[2023-07-20 15:42] LABS: Hemoglobin A1c 7.6 % (3.8-5.6)
[2023-07-24 14:45] LABS: Vitamin D,25 Hydroxy 39.1 ng/mL
== END | disposition home or self-care (01) ==
LOC: BIMLAB 08:01
PROVIDERS: PCP Internal Medicine; Referring Provider Internal Medicine; Visit Provider Internal Medicine
DX: E78.5 Hyperlipidemia, unspecified (principal); E10.65 Type 1 diabetes mellitus with hyperglycemia; I10 Essential (primary) hypertension; G47.33 Obstructive sleep apnea (adult) (pediatric); Z91.89 Other specified personal risk factors, not elsewhere classified; Z12.5 Encounter for screening for malignant neoplasm of prostate; Z13.220 Encounter for screening for lipoid disorders; E55.9 Vitamin D deficiency, unspecified
CPT/HCPCS: 36415; 80053; 80061; 82306; 83036; 84153; 84439; 84443; 84481; 85025; G0103

== ENCOUNTER 2023-08-06 09:00 | Outpatient (RCR) | payer OTHER, SELFPAY ==
--- NOTE | 2023-07-11 11:15 | HP.PTEVAL ---
Patient's Visit Information Visit Information Visit Information: JENNY SAENZ is a 53 year old M referred to Physical Therapy by Dr. Truman Snell MD with a diagnosis of Frozen Shoulder. Date of Evaluation: 07/11/23 Physical Therapist: Mesha Hsieh DPT Visit Plan Frequency: 1x/Week Duration: 4 Weeks Plan: Pt will complete HEP then follow up in 4 weeks for d/c or progression. Encouraged to call if questions/concerns. HEP Given IE: Cane Flexion/Abd/Ext/IR, Wall Wash Flexion, Towel IR, Counter Walk Away Subjective Subjective: March his right shoulder started to bother him- with pain radiating down to the deltoid- in Jun he saw Dr. Chu- the pain has subsided but his ROM is limited- he sent him to Dr. Snell who told him that he has frozen shoulder. He does notice that if he is working under something he has limited ROM. 11/28 in the last few days. He knows its there it doesn't stop him from doing anything. The pain is int he deltoid but no pain the shoulder. They took x-rays and everything looked good. He is a Type 1 Diabetic. MD offered a cortisone injection but he declined due to his DM. Sleep: not disturbed. Right hand dominate. Work: [employer]- not limited at work- just works around it. PMHX/Meds: see list Objective Objective: Posture: good throughout- no guarding of the right UE Gait: no deviation- good arm swing and trunk rotation Palpation: not tender to touch ROM: Cervical/Elbow/Wrist: WFL AROM: Shoulder: Abd: 140 Flexion: 120 IR: Belt Line ER: 30 degrees. AAROM with cane: Abd: 165 Flexion: 150 IR: Belt Line ER: 50 degrees. With discomfort at end ranges Strength: 4+/5 throughout- Elbow: 5/5 Cash Applications Manager: good Balance/Special Test Scores Quick DASH Score: 15.9075 Goals Goal 1:: Patient will be I with HEP and progression Goal Time Frame: 4-6 Weeks Goal 2:: Patient will demo full AROM of the right shoulder Goal Time Frame: 4-6 Weeks Rehabilitation Potential Physical Therapy Diagnosis: Patient presents with hypomobility- pt has decreased ROM in the right shoulder limiting his ability to complete ADL's without compensation Rehabilitation Potential: Good Anticipated Interventions Patient/Client Instruction: Educate patient on: Benefits of Fitness Program Therapeutic Exercise to Include: Active ROM Text: Thank you for the opportunity to evaluate your patient. For Medicare and Medicare HMO plans, please review the plan of care and approve it. It will need to be FAXED BACK to us at [phone] for Medicare purposes. For Medicare only, by signing this I certify the plan of care. Please let me know if there are questions or concerns regarding this plan of care. Physician Signature: Date:
--- NOTE | 2023-08-06 09:18 | HP.PTDCSUM_ITS ---
Discharge Summary D/C summary: It has been my pleasure to treat JENNY SAENZ referred by Dr. Truman Snell MD, with the diagnosis of Frozen Shoulder for a total of 2 visit(s). Discharge Date: Please see the following information for a summary of their discharge status. Subjective Subjective: Patient reports that he feels all of the ex are easier with the exception of IR behind the back Overall Improvement % Improvement: 50 Objective Objective/Function: Shoulder: Abd: 155 Flexion: 150 IR: Belt Line ER: 60 degrees. AAROM with cane: Abd: 170 Flexion: 160 IR: L3 ER: 60 degrees. With discomfort at end ranges Goals Goal 1:: Patient will be I with HEP and progression Goal Progress: Goal Met Goal 2:: Patient will demo full AROM of the right shoulder Goal Progress: Progressing Plan Plan: 08/06/23: Discharge to I HEP Pt will complete HEP then follow up in 4 weeks for d/c or progression. Encouraged to call if questions/concerns. HEP Given IE: Cane Flexion/Abd/Ext/IR, Wall Wash Flexion, Towel IR, Counter Walk Away D/C Information d/c sentence: If there are questions or concerns regarding this patient's physical therapy, radha orozco feel free to call me at [phone]. Thank you for the referral of this patient. Sincerely, Mesha Hsieh, DPT Balance/Gait/Functional tests Balance/Special Test Scores Quick DASH Score: 6.8175 Improvement % Improvement: 50
== END 2023-08-06 09:56 | disposition home or self-care (01) ==
LOC: PT 09:00
PROVIDERS: PCP Internal Medicine; Referring Provider Orthopaedic Surgery Sports Medicine; Visit Provider Orthopaedic Surgery Sports Medicine
DX: M75.01 Adhesive capsulitis of right shoulder (principal); M25.511 Pain in right shoulder
CPT/HCPCS: 97110; 97162; 97164

== ENCOUNTER → 2023-11-14 | Outpatient (CLI) | payer OTHER, SELFPAY ==
[2023-11-14 12:49] LABS: Free T3 2.9 pg/mL (2.18-3.98); PSA,Total- Diagnostic 4.48 ng/mL (0.0-4.0); Thyroid Stim Hormone (TSH) 4.97 uIU/mL (0.358-3.74)
[2023-11-15 04:07] LABS: Thyroid Peroxidase AB 18 IU/mL (0-34)
== END | disposition home or self-care (01) ==
LOC: BIMLAB 08:41
PROVIDERS: Internal Medicine Endocrinology, Diabetes & Metabolism; PCP Internal Medicine; Referring Provider Internal Medicine; Visit Provider Internal Medicine
DX: R79.89 Other specified abnormal findings of blood chemistry (principal); R97.20 Elevated prostate specific antigen [PSA]; N40.0 Benign prostatic hyperplasia without lower urinary tract symptoms; R94.6 Abnormal results of thyroid function studies
CPT/HCPCS: 36415; 84153; 84439; 84443; 84481; 86376

== ENCOUNTER → 2024-02-21 | Outpatient (CLI) | payer OTHER, SELFPAY ==
[2024-02-21 12:40] LABS: Free T3 2.9 pg/mL (2.18-3.98); PSA,Total- Diagnostic 5.13 ng/mL (0.0-4.0); T4 Free Direct 0.92 ng/dL (0.76-1.46); Thyroid Stim Hormone (TSH) 2.47 uIU/mL (0.358-3.74)
== END | disposition home or self-care (01) ==
LOC: BIMLAB 08:02
PROVIDERS: PCP Internal Medicine; Referring Provider Internal Medicine; Visit Provider Internal Medicine
DX: N40.0 Benign prostatic hyperplasia without lower urinary tract symptoms (principal); R97.20 Elevated prostate specific antigen [PSA]; R79.89 Other specified abnormal findings of blood chemistry
CPT/HCPCS: 36415; 84153; 84439; 84443; 84481

== ENCOUNTER → 2024-10-13 | Outpatient (CLI) | payer OTHER, SELFPAY ==
[2024-10-13 12:57] LABS: Microalbumin,Random Urine 25.1 mg/L (NO RANGE EST.); Microalbumin:Creatinine Ratio 8.6 mg/g CRE (<30 mg/g CRE)
[2024-10-13 13:51] LABS: ALB/GLOB Ratio 1.1 RATIO (0.9-2.4); AST(SGOT) 18 U/L (15-37); Alanine Aminotransfer ALT/SGPT 29 U/L (16-61); Albumin, Serum 3.6 g/dL (3.2-5.0); Alkaline Phosphatase 77 U/L (45-117); Anion Gap 4 (5-15); BUN 26 mg/dL (7-18); BUN/Creat Ratio 26.3 RATIO (10-20); Calcium,Total 8.5 mg/dL (8.5-10.1); Chloride 107 mmol/L (98-107); Cholesterol 183 mg/dL (200); Creatinine, Serum 0.99 mg/dL (0.70-1.30); EST Glomerular Filtration Rate 84 mL/min (>60); Est Glom Filt Rate - Afr Amer 101 mL/min (>60); Globulin 3.4 g/dL (2.2-4.2); Glucose 114 mg/dL (74-106); High Density Lipoprotein 39 mg/dL; Potassium 3.8 mmol/L (3.5-5.1); Sodium Level 140 mmol/L (136-145); Triglycerides 90 mg/dL; Very Low Density Lipoprotein 18 mg/dL (5-40)
== END | disposition home or self-care (01) ==
LOC: BIMLAB 08:37
PROVIDERS: PCP Internal Medicine; Referring Provider Internal Medicine Endocrinology, Diabetes & Metabolism; Visit Provider Internal Medicine Endocrinology, Diabetes & Metabolism
DX: E10.65 Type 1 diabetes mellitus with hyperglycemia (principal); E78.2 Mixed hyperlipidemia; I10 Essential (primary) hypertension; R94.6 Abnormal results of thyroid function studies
CPT/HCPCS: 36415; 80053; 80061; 82043; 82570; 84443